=== PATIENT | male | born 2005 | race Caucasian/White ===

== ENCOUNTER 2023-03-11 17:14 | Outpatient (CLI) | payer OTHER, SELFPAY ==
--- NOTE | 2023-03-11 17:30 | MR_ITS ---
[address] [address] Phone:?[phone] Fax:?[phone] Referring Physician Information: Juaquin Bolivar M.D. [address] [facility] [address] Phone:?[phone] Fax:?[phone] Patient:Annia Chavez D.O.B:?2005 Sex:?Male Phone:?[phone] [facility] MRN:?[id number] Exam Date:?03/11/2023 EXAM: MRI OF THE RIGHT KNEE CLINICAL INFORMATION: The patient is a 17-year-old with right knee pain. Evaluate for ACL injury. PRIOR SURGERY: None reported. COMPARISON STUDIES: There are no prior studies available for comparison. TECHNICAL INFORMATION: Imaging was performed on a high-field, 1.5 Natasha MR scanner. Axial proton-density and fat-suppressed T2 imaging of the right knee was performed in addition to sagittal proton-density and fat-suppressed proton- density imaging. Coronal proton-density and coronal STIR imaging was also produced. FINDINGS: Articular/Extraarticular collections: Effusion: Moderate. Popliteal cyst: Minimal. Loose bodies: No well-defined intra-articular loose bodies are present. Subcutaneous and extraarticular soft tissues: Nonspecific subcutaneous soft tissue edema and/or hemorrhage can be seen about the anterior, medial, and lateral aspects of the right knee. Osseous structures: There is marrow edema with mild cortical impaction along the central and anterior aspects of the lateral femoral condyle seen on sagittal series 6 image 12 and on coronal series 8 image 19. Increased fat-suppressed signal intensity with mild cortical impaction can be seen along the posterior aspects of the medial and lateral tibial plateaus on coronal series 8 image 23. The findings are in keeping with bony injuries related to the anterior cruciate ligament rupture described below. No other bony abnormalities about the knee are present. Ligamentous structures: ACL: The anterior cruciate ligament is abnormal in appearance. There is a severe sprain of the ACL with broad-based, full-thickness tearing involving the midportion, seen to best advantage on sagittal series 5 image 18 and on sagittal series 6 image 18. Increased signal intensity within the intercondylar notch can be seen and the findings are consistent with an ACL rupture. PCL: Intact and normal in appearance. MCL: A grade 2 MCL sprain can be seen with partial-thickness tearing of the MCL fibers on coronal series 8 image 18. Adjacent soft tissue edema and/or hemorrhage is noted. There is no evidence for complete disruption. LCL: Intact and normal in appearance. Posterolateral corner: Intact and normal in appearance. Posteromedial corner: No posteromedial corner soft tissue injury. Semimembranosus and pes anserine tendons demonstrate no tendinopathy or associated bursitis. Extensor mechanism/Patellar retinacular structures: Patellar tendon: Intact, without tendinopathy. Quadriceps tendon: Intact, without tendinopathy. Retinacula: The medial and lateral retinacula are intact. The medial patellofemoral ligament is intact. Medial compartment: Medial meniscus: The medial meniscus is abnormal in appearance. There is broad- based, vertical tearing involving the posterior horn, seen to best advantage on sagittal series 6 image 25 and on coronal series 7 image 21. This vertical tearing measures approximately 25 mm in mediolateral dimension. This configuration of tearing may progress to a bucket-handle type tear. The middle and anterior portions of the medial meniscus are currently intact. No parameniscal cyst formation is identified. Medial femoral condyle: No chondromalacia, chondral defect, or osteochondral abnormality. Medial tibial plateau: No chondromalacia, chondral defect, or osteochondral abnormality. Lateral compartment: Lateral meniscus: The lateral meniscus is abnormal in appearance. There is broad-based, complex tearing of the posterior horn, seen to best advantage on sagittal series 6 image 14 and on coronal series 7 image 23. The area of tearing measures 15 mm in mediolateral dimension and involves the superior and inferior surfaces as well as the apical free edge. The middle and anterior portions of the lateral meniscus appear intact. No parameniscal cyst formation is identified. Lateral femoral condyle: Grade II to III chondromalacia can be seen along the anterior weightbearing surfaces of the lateral femoral condyle. Underlying bony changes are seen. Lateral tibial plateau: No chondromalacia, chondral defect, or osteochondral abnormality. Patellofemoral compartment: Patella: No chondromalacia, chondral defect, or osteochondral abnormality. Trochlea: No chondromalacia, chondral defect, or osteochondral abnormality. Neurovascular: No definite neurovascular abnormalities are seen. CONCLUSION: 1. Severe sprain and rupture of the anterior cruciate ligament with associated bony injuries. 2. Moderate grade 2 MCL sprain. 3. Vertical tearing of the posterior horn of the medial meniscus. 4. Complex tearing of the posterior horn of the lateral meniscus. 5. Chondromalacia of the lateral femoral condyle. 6. Moderate knee joint effusion and minimal popliteal cyst. [facility] Electronically signed on 03/12/2023 7:42:00 AM by Piyush Mckenzie M.D.
== END 2023-03-11 17:15 | disposition home or self-care (01) ==
PROVIDERS: Visit Provider Family Medicine
DX: M25.561 Pain in right knee (principal); S83.511A Sprain of anterior cruciate ligament of right knee, initial encounter; S83.411A Sprain of medial collateral ligament of right knee, initial encounter; S83.241D Other tear of medial meniscus, current injury, right knee, subsequent encounter; S83.271A Complex tear of lateral meniscus, current injury, right knee, initial encounter; M94.261 Chondromalacia, right knee; M25.461 Effusion, right knee
CPT/HCPCS: 73721